=== PATIENT | female | born 1985 | race Caucasian/White ===

== ENCOUNTER 2021-01-22 09:13 | Outpatient (CLI) | payer OTHER | END 2021-01-22 09:22 | disposition home or self-care (01) | LOC: SONOGRAMA 09:13 | PROVIDERS: ATTEND Obstetrics & Gynecology | DX: N83.291 Other ovarian cyst, right side (principal); D25.0 Submucous leiomyoma of uterus ==

== ENCOUNTER 2021-03-12 09:00 | Inpatient (IN) | payer OTHER ==
[~2021-03-12] VITALS: Ht 170.2 cm; Wt 117.5 kg
[2021-03-12] MEDS ORDERED: TOPROL XL50 M1 PO (11:20)
== END 2021-03-16 10:58 | disposition home or self-care (01) | DRG 743 ==
LOC: OB/GYN 03-14 06:28 → O/R 03-14 06:28 → SURH 03-14 07:00 → OB/GYN 03-14 10:56
PROVIDERS: ADMIT Obstetrics & Gynecology; ATTEND Obstetrics & Gynecology
PROC: 0UT90ZZ Resection of Uterus, Open Approach (ICD-10-PCS; principal; 2021-03-14 07:00)
DX: D25.0 Submucous leiomyoma of uterus (principal); D25.1 Intramural leiomyoma of uterus; N80.0 Endometriosis of uterus; N93.8 Other specified abnormal uterine and vaginal bleeding; N72 Inflammatory disease of cervix uteri; N84.1 Polyp of cervix uteri

== ENCOUNTER 2024-02-16 09:30 | Inpatient (IN) | payer OTHER ==
[~2024-02-16] VITALS: Ht 175.3 cm; Wt 113.4 kg
[~2024-02-16 09:30] MED LIST: TOPROL XL50 M1 PO
[2024-02-18] MEDS ORDERED: SUGAMMADEX SODIUM 200 MG/2 ML VIAL IV ONE (16:00)
[2024-02-18] MEDS ORDERED: MORPHINE SULFATE 4 MG/ML VIAL IV ONE (16:30)
[2024-02-18] MEDS ORDERED: RINGERS SOLUTION,LACTATED 1,000 ML IV SCH (16:45)
[2024-02-18] MEDS ORDERED: DEXTROSE 5 % AND 0.9 % NACL 1,000 ML IV SCH (16:45)
[2024-02-18] MEDS ORDERED: MEPERIDINE HCL/PF 25 MG/ML VIAL IM SCH (17:00)
[2024-02-18] MEDS ORDERED: ONDANSETRON HCL 2 MG/ML VIAL IV SCH (17:00)
[2024-02-18] MEDS ORDERED: CEFAZOLIN SODIUM 1,000 MG VIAL IV SCH (17:00)
[2024-02-18] MEDS ORDERED: PROMETHAZINE HCL 50 MG/ML AMPUL IM SCH (17:00)
[2024-02-18 19:18] VITALS: BP 132/69
[2024-02-19] VITALS: BP 113/76
[2024-02-19] MEDS ORDERED: OxyCODONE HCL/APAP UD (PERCOCET) PO SCH (06:00)
[2024-02-19 07:38] LABS: HEMATOCRIT 38.7 % (36.0-45.00); HEMOGLOBIN 12.8 g/dL (12.0-15.00); MEAN CORPUSCULAR HEMOGLOBIN 29.1 pg (27.00-32.0); MEAN CORPUSCULAR HGB CONC 33.1 g/dl (32.0-36.0); PLATELET COUNT 278 K/uL (150-450); RED CELL DISTRIBUTION WIDTH 13.7 % (11.5-14.5)
[2024-02-19 08:00] VITALS: BP 135/80
[2024-02-19] MEDS ORDERED: SIMETHICONE 125 MG CAPSULE PO SCH (09:00)
[2024-02-19] MEDS ORDERED: METOPROLOL TARTRATE 50 MG TABLET PO SCH (12:30)
[2024-02-19 16:00] VITALS: BP 93/61
[2024-02-19 20:00] VITALS: BP 111/81
[2024-02-20 01:06] VITALS: BP 140/82; O2SAT 99
[2024-02-20 08:32] VITALS: BP 128/60
== END 2024-02-20 14:59 | disposition home or self-care (01) | DRG 743 ==
LOC: O/R 02-18 07:04 → SURH 02-18 09:30 → OB/GYN 02-18 16:25
PROVIDERS: ADMIT Obstetrics & Gynecology; ATTEND Obstetrics & Gynecology
PROC: 0UT00ZZ Resection of Right Ovary, Open Approach (ICD-10-PCS; 2024-02-18)
PROC: 0DNW0ZZ Release Peritoneum, Open Approach (ICD-10-PCS; 2024-02-18)
PROC: 0UT50ZZ Resection of Right Fallopian Tube, Open Approach (ICD-10-PCS; principal; 2024-02-18 15:15)
DX: N83.11 Corpus luteum cyst of right ovary (principal); N83.01 Follicular cyst of right ovary; Z20.822 Contact with and (suspected) exposure to COVID-19